=== PATIENT | female | born 1995 | race Caucasian/White ===

== ENCOUNTER 2016-11-18 22:49 | Emergency (ER) | payer OTHER ==
[~2016-11-18] VITALS: Ht 160 cm; Wt 57.0 kg
[2016-11-18 22:53] VITALS: TEMP 36.7; Ht 160 cm; Wt 57.0 kg
[2016-11-18] MEDS ORDERED: GABA-112 PO (23:12)
[2016-11-18] MEDS ORDERED: ALPR1TAB3 PO (23:12)
[2016-11-18] MEDS ORDERED: FLUO40CA8 PO (23:12)
[2016-11-18] MEDS ORDERED: GABA1CAP5 PO (23:12)
[2016-11-19 01:16] LABS: URINE APPEARANCE CLEAR (CLEAR); URINE BILIRUBIN NEG (NEG); URINE COLOR YELLOW; URINE NITRITE NEG (NEG); URINE SPECIFIC GRAVITY 1.014 (1.000-1.030); UROBILINOGEN NEG (NEG)
[2016-11-19 01:18] LABS: MANUAL MICROSCOPIC REQUIRED? NO; REVIEW REQ? NO
[2016-11-19 01:30] LABS: HEMATOCRIT 40.6 % (37-47); MEAN CELL VOLUME 90.2 fL (80-100); MEAN CORPUSCULAR HEMOGLOBIN 29.8 pg (25-34); MEAN PLATELET VOLUME 8.8 fL (7.4-10.4); PLATELET COUNT 250 K/uL (130-400); WHITE BLOOD COUNT 5.95 K/uL (4.8-10.8)
[2016-11-19 01:39] LABS: BENZODIAZEPINE, URINE POS (NEG); COCAINE,URINE NEG (NEG); PHENCYCLIDINE, URINE NEG (NEG)
[2016-11-19 01:51] LABS: ALT/SGPT 19 U/L (12-78); AST/SGOT 10 U/L (15-37); BLOOD UREA NITROGEN 3 mg/dl (7-18); BUN/CREATININE RATIO 4.4 (10-20); CALCIUM 8.6 mg/dl (8.5-10.1); CARBON DIOXIDE 26 mmol/L (21-32); CHLORIDE 109 mmol/L (98-107); CREATININE 0.73 mg/dl (0.60-1.20); GLUCOSE 83 mg/dl (70-99); POTASSIUM 3.7 mmol/L (3.5-5.1); SODIUM 143 mmol/L (136-145)
[2016-11-19] MEDS ORDERED: ALPRAZOLAM 0.5 MG TAB PO STA (01:55)
[2016-11-19 02:02] LABS: ALKALINE PHOSPHATASE 62 U/L (45-117)
--- NOTE | 2016-11-19 02:05 | EMERGENCY ROOM VISIT NOTE ---
History Report prepared by Angelica: Jimmy High Under the Supervision of: Dr. Aaron Esparza M.D. First contact with patient: 23:15 Chief Complaint: MENTAL HEALTH EVALUATION Stated Complaint: CUTS TO WRIST, ANXIETY History of Present Illness The patient is a 21 year old female who presents to the Emergency Room for a mental health evaluation. She has a past medical history of depression, anxiety , panic disorder, and PTSD. Beginning three weeks ago, her panic attacks have been more of what she describes as "frequent spells of terror." These happen to her three times a day, only allowing her to sleep for 1 hour at night. This has brought her to cutting her left wrist earlier this morning. The only other time she had an episode of cutting is in January of 2016.She has never done anything else related to self harm and has not made a plan to commit suicide. However, the thought of suicide has crossed her mind. She has no intent. She cut her wrist because she was "trying to feel something." She is currently a participant in the [facility] therapy sessions on [facility]. She just saw her therapist this week and has an appointment scheduled for next week as well. She is prescribed Fluoxetine 40 mg, Gabapentin 200 mg in the morning 400 mg at night, and Xanax 1-2 mg PRN. She states that she tries to not take her Xanax frequently, with the last dose a couple of days ago. She also takes control. She has a history of marijuana use, but has not smoked any recently. She also has chronic headaches. Source of History: patient Onset: 3 weeks ago Position: other (Global) Symptom Intensity: moderate Quality: other (Mental Health Evaluation) Timing: constant Review of Systems See HPI for pertinent positives & negatives. A total of 10 systems reviewed and were otherwise negative. Past Medical & Surgical Medical Problems: (1) Anxiety (2) Depression (3) Panic disorder (4) PTSD (post-traumatic stress disorder) Family History Patient reports no known family medical history. Social History Smoking Status: Never Smoker Smokeless Tobacco Use: No Alcohol Use: none Drug Use: marijuana Marital Status: in relationship Housing Status: lives with significant other Occupation Status: [employer] student Current/Historical Medications Scheduled Alprazolam (Xanax), 1 MG PO TID Fluoxetine (Prozac), 40 MG PO DAILY Gabapentin (Neurontin), 200 MG PO QAM Gabapentin (Neurontin), 400 MG PO HS Allergies Uncoded Allergies: ANESTHESIA (Adverse Reaction, Unknown, SICK, 11/18/16) Physical Exam Vital Signs Date Time Temp Pulse Resp B/P (MAP) Pulse Ox O2 Delivery O2 Flow Rate FiO2 11/19/16 02:21 75 18 111/78 97 11/19/16 00:48 78 18 109/73 98 Room Air 11/18/16 22:53 36.7 102 20 111/70 99 Room Air Physical Exam Constitutional: Vital signs reviewed. Eyes: Pupils are equal round reactive to light. Conjunctiva are noninjected. ENT: Pharynx is clear without erythema or exudate. Mucous membranes are moist. Neck supple without meningeal signs. Respiratory: Clear to auscultation bilaterally. Breath sounds are equal bilaterally. Cardiovascular: Regular rate and rhythm. No rubs or gallops. GI: Soft, nondistended and nontender. Bowel sounds are present. Musculoskeletal: Very superficial transverse abrasions to the left volar wrist without signs of infection. Integumentary: No cyanosis. Neurological: The patient is awake and alert. No focal deficits. Psychiatric: Anxious. Medical Decision & Procedures Laboratory Results 11/19/16 01:17 11/19/16 01:17 Test 11/18/16 23:08 11/19/16 01:03 11/19/16 01:17 Urine Color YELLOW Urine Appearance CLEAR (CLEAR) Urine pH 6.0 (4.5-7.5) Urine Specific Rowe 1.014 (1.000-1.030) Urine Protein NEG (NEG) Urine Glucose (UA) NEG (NEG) Urine Ketones NEG (NEG) Urine Occult Blood TRACE (NEG) Urine Nitrite NEG (NEG) Urine Bilirubin NEG (NEG) Urine Urobilinogen NEG (NEG) Urine Leukocyte Esterase NEG (NEG) Urine WBC (Auto) 1-5 /hpf (0-5) Urine RBC (Auto) 0-4 /hpf (0-4) Urine Hyaline Casts (Auto) 0 /lpf (0-5) Urine Epithelial Cells (Auto) 10-20 /lpf (0-5) Urine Bacteria (Auto) NEG (NEG) Urine Opiates Screen NEG (NEG) Urine Methadone, Qualitative NEG (NEG) Urine Barbiturates NEG (NEG) Urine Phencyclidine (PCP) Level NEG (NEG) Ur Amphetamine/Methamphetamine NEG (NEG) MDMA (Ecstasy) Screen NEG (NEG) Urine Benzodiazepines Screen POS (NEG) Urine Cocaine Metabolite NEG (NEG) Urine Marijuana (THC) POS (NEG) Urine Test NEG (NEG) Red Blood Count 4.50 M/uL (4.2-5.4) Mean Corpuscular Volume 90.2 fL (80-100) Mean Corpuscular Hemoglobin 29.8 pg (25-34) Mean Corpuscular Hemoglobin Concent 33.0 g/dl (32-36) RDW Standard Deviation 42.5 fL (36.4-46.3) RDW Coefficient of Variation 13.0 % (11.5-14.5) Mean Platelet Volume 8.8 fL (7.4-10.4) Anion Gap 8.0 mmol/L (3-11) Est Creatinine Clear Calc Drug Dose 100.0 ml/min Estimated GFR () 135.5 Estimated GFR (Non- 116.9 BUN/Creatinine Ratio 4.4 (10-20) Calcium Level 8.6 mg/dl (8.5-10.1) Total Bilirubin 0.2 mg/dl (0.2-1) Direct Bilirubin < 0.1 mg/dl (0-0.2) Aspartate Amino Transf (AST/SGOT) 10 U/L (15-37) Alanine Aminotransferase (ALT/SGPT) 19 U/L (12-78) Alkaline Phosphatase 62 U/L (45-117) Total Protein 7.1 gm/dl (6.4-8.2) Albumin 4.0 gm/dl (3.4-5.0) Thyroid Stimulating Hormone (TSH) 1.180 uIu/ml (0.300-4.500) Salicylates Level 4.7 mg/dl (2.8-20) Acetaminophen Level < 2 ug/ml (10-30) Ethyl Alcohol mg/dL 37.0 mg/dl (0-3) Laboratory results as reviewed by me. Medications Administered Medications (Trade) Dose Ordered Sig/Mina Route Start Time Stop Time Status Last Admin Dose Admin Alprazolam (Xanax Tab) 1 mg NOW STAT PO 11/19/16 01:55 11/19/16 01:56 DC 11/19/16 02:01 1 MG ED Course 2315: The patient was evaluated in room A8. A complete history and physical exam was performed. 2350: [address] [place] [address] will be coming to evaluate the patient. 0103: The patient would like further treatment as an inpatient. 0155: Ordered Xanax Tab 1 mg PO 0220: After reassessment, the patient feels better. She spoke to her parents, and they would like her to seek treatment at a hospital closer to them so they can be involved with her treatment. The patient's fiance feels that she is not at risk for further harm at this time. He will take her to [facility] later today. Medical Decision This is a 21-year-old female who presents for mental health evaluation. I did perform a limited focused review of portions of the patient's old chart on the electronic medical record. The patient has had no recent pertinent visits to this hospital. I did evaluate the patient as noted above. Patient is presenting for mental health evaluation due to increased anxiety and depression. I did order and review the patient's blood work as noted in the electronic medical record. The patient was given Xanax 1 mg by mouth for her anxiety. She was evaluated by [address] [place] [address]. She did wish to be referred for inpatient treatment initially but after she spoke to her parents and her fianc, she decided she wanted to go home tonight and follow up at [facility] later in morning because it's closer to her parents. She was therefore discharged with her fianc and will be evaluated later today. Medication Reconcilliation Current Medication List: was personally reviewed by me Blood Pressure Screening Patient's blood pressure: Normal blood pressure Blood pressure disposition: Did not require urgent referral Impression Primary Impression: Mood disorder Additional Impressions: Deliberate self-cutting Anxiety Scribe Attestation The scribe's documentation has been prepared under my direct and personally reviewed by me in its entirety. I confirm that the note above accurately reflects all work, treatment, procedures, and medical decision making performed by me. Departure Information Dispostion Home / Self-Care Referrals No Doctor, Assigned (PCP) Forms HOME CARE DOCUMENTATION FORM, IMPORTANT VISIT INFORMATION Patient Instructions Anxiety Body Response, My [facility] Additional Instructions You have been examined and treated today on an emergency basis only. This is not a substitute for, or an effort to provide, complete comprehensive medical care. It is impossible to recognize and treat all injuries or illnesses in a single emergency department visit. It is therefore important that you follow up closely with your psychiatrist and counselor. Call as soon as possible for an appointment. Return for worsening symptoms or if you develop thoughts of hurting yourself or others any other concerning symptoms. Problem Qualifiers
[2016-11-19 02:10] LABS: ACETAMINOPHEN < 2 ug/ml (10-30)
[2016-11-19 02:21] VITALS: BP 111/78; PULSE 75; O2SAT 97
[2016-11-23 08:00] LABS: HYDROXYETHYLFLURAZEPAM CONF NEGATIVE NG/ML (CUTOFF=50); HYDROXYMIDAZOLAM NEGATIVE NG/ML (CUTOFF=50); HYDROXYTRIAZOLAM CONF NEGATIVE NG/ML (CUTOFF=50); TEMAZEPAM CONF NEGATIVE NG/ML (CUTOFF=50)
== END 2016-11-19 02:23 | disposition home or self-care (01) ==
LOC: C.EDB 22:51 → C.EDA 11-19 02:23
DX: F39 Unspecified mood [affective] disorder (principal); Z91.5 Personal history of self-harm; F41.9 Anxiety disorder, unspecified; F32.9 Major depressive disorder, single episode, unspecified; Z79.899 Other long term (current) drug therapy; Z88.8 Allergy status to other drugs, medicaments and biological substances